=== PATIENT | female | born 1970 | race African-American/Black ===

== ENCOUNTER 2024-05-09 21:52 | Emergency (ER) | payer MEDICAID ==
[~2024-05-09] VITALS: Ht 165.1 cm; Wt 54.4 kg
[2024-05-09 22:20] VITALS: BP 110/77; TEMP 97.7; O2SAT 99
== END 2024-05-09 23:31 ==
LOC: ER 21:56
DX: S31.010A Laceration without foreign body of lower back and pelvis without penetration into retroperitoneum, initial encounter (principal); F31.9 Bipolar disorder, unspecified; F20.9 Schizophrenia, unspecified; Z86.69 Personal history of other diseases of the nervous system and sense organs; Z87.39 Personal history of other diseases of the musculoskeletal system and connective tissue; Z91.013 Allergy to seafood; X58.XXXA Exposure to other specified factors, initial encounter; Y93.89 Activity, other specified; Y92.89 Other specified places as the place of occurrence of the external cause; Y99.8 Other external cause status

== ENCOUNTER 2025-01-06 17:27 | Emergency (ER) | payer MEDICAID ==
[~2025-01-06] VITALS: Ht 160 cm; Wt 40.8 kg
[2025-01-06 21:30] VITALS: BP 120/72; TEMP 97.8; O2SAT 98
== END 2025-01-06 21:31 ==
LOC: ER 17:40
DX: S91.011A Laceration without foreign body, right ankle, initial encounter (principal); R50.9 Fever, unspecified; F31.9 Bipolar disorder, unspecified; F20.9 Schizophrenia, unspecified; Z86.69 Personal history of other diseases of the nervous system and sense organs; Z87.39 Personal history of other diseases of the musculoskeletal system and connective tissue; Z91.013 Allergy to seafood; W26.8XXA Contact with other sharp object(s), not elsewhere classified, initial encounter; Y93.89 Activity, other specified; Y92.89 Other specified places as the place of occurrence of the external cause; Y99.8 Other external cause status